=== PATIENT | male | born 1940 | race Caucasian/White ===

== ENCOUNTER 2016-12-17 07:46 | Emergency (ER) | payer MEDICARE, OTHER ==
[2016-12-17] MEDS: KETOROLAC TROMETHAMINE 30 MG/1ML VIAL IVP ONE (08:02)
[2016-12-17] MEDS ORDERED: KETOROLAC TROMETHAMINE 30 MG/1ML VIAL ONE (08:03)
[2016-12-17] MEDS ORDERED: 0.9 % SODIUM CHLORIDE 1,000 ML IV ONE (08:03)
[2016-12-17 08:11] LABS: BASOPHILS % 0.5 (0.0-1.5); EOSINOPHILS % 2.7 % (0.0-6.8); MEAN CORPUSCULAR HEMOGLOBIN 32.4 pg (28.0-34.0); MONOCYTES % 3.5 % (0.0-11.0); NEUTROPHILS # 6.7 # k/uL (1.4-7.7)
[2016-12-17] MEDS: 0.9 % SODIUM CHLORIDE 1,000 ML IV ONE (08:13)
[2016-12-17 08:24] LABS: eGFR (African) > 60; eGFR (Non-African) > 60
--- NOTE | 2016-12-17 09:05 | ED Physician Documentation ---
Male Genitourinary Problems - HISTORIAN Historian: patient, spouse - HPI Chief Complaint: Male Genitourinary Problems Additional Information: rt flank pain diaphoresis card irreg sob pmh gu lith x 3 onset last noct Duration: continues in ED, worse Severity: moderate Further Comments: yes (diaphoresis and card irreg of concern) - Associated Symptoms Problems Urinating: blood in urine (dont know-will check dec ua-not water as usual) Abdominal Pain: mild, moderate - Sexual History Sexual History: non-contributory - ROS CONST: no problems GI/: nausea, abdominal pain. denies: vomiting, problems urinating MS/SKIN/LYMPH: none - PAST HX Past History: kidney stones Cardiac Disease: none Surgeries/Procedures: none Allergies/Adverse Reactions: Allergies Allergy/AdvReac Type Severity Reaction Status Date / Time No Known Allergies Allergy Verified 08/03/13 17:55 Home Medications: Ambulatory Orders Medication Instructions Recorded Cephalexin [Keflex] 500 mg PO QID #30 capsule 08/03/13 - SOCIAL HX Smoking History: non-smoker Alcohol Use: none Drug Use: none - FAMILY HX Family History: none - VITAL SIGNS Vital Signs: Vital Signs Temp Pulse Resp BP Pulse Ox 98.2 F 68 26 H 186/84 96 12/17/16 08:17 12/17/16 08:17 12/17/16 08:17 12/17/16 08:17 12/17/16 08:17 - REVIEWED ASSESSMENTS Nursing Assessment Reviewed: Yes Vitals Reviewed: Yes ED Results Lab/Radiology - Lab Results Lab Results: Lab Results 12/17/16 12/17/16 12/17/16 08:00 08:00 08:00 WBC 10.20 K/ul K/ul (4.00-12.00) RBC 4.97 M/ul M/ul (3.90-5.20) Hgb 16.1 g/dL g/dL (12.0-18.0) Hct 45.2 % % (37.0-53.0) MCV 91.0 fl fl (80.0-100.0) MCH 32.4 pg pg (28.0-34.0) MCHC 35.6 g/dL g/dL (30.0-36.0) RDW 13.4 % % (11.3-14.3) Plt Count 185 K/mm3 K/mm3 (130-400) Neut % (Auto) 66.0 % % (39.0-79.0) Lymph % (Auto) 25.6 % % (16.0-50.0) Ware % (Auto) 3.5 % % (0.0-11.0) Eos % (Auto) 2.7 % % (0.0-6.8) Baso % (Auto) 0.5 (0.0-1.5) Neut # 6.7 # k/uL # k/uL (1.4-7.7) Lymph # 2.6 # k/uL # k/uL (0.6-4.0) Ware # 0.4 # k/uL # k/uL (0.0-0.9) Eos # 0.3 # k/uL # k/uL (0.0-0.6) Baso # 0.1 # k/uL # k/uL (0.0-0.5) Reactive Lymphs % 1.6 % % (0.0-5.0) Reactive Lymphs # 0.2 # k/uL # k/uL (0.0-0.8) Sodium 135 mmol/L L mmol/L (136-145) Potassium 4.2 mmol/L mmol/L (3.5-5.0) Chloride 108 mmol/L mmol/L (98-110) Carbon Dioxide 29 mmol/L mmol/L (20-32) BUN 13 mg/dL mg/dL (10-26) Creatinine 0.8 mg/dL mg/dL (0.4-1.5) Estimated Creat Clear 96 Est GFR ( Amer) > 60 (60 - ) Est GFR (Non-Af Amer) > 60 (60 - ) Glucose 138 mg/dL H mg/dL (70-99) Calcium 9.7 mg/dL mg/dL (8.5-10.5) Total Bilirubin 0.6 mg/dL mg/dL (0.2-1.2) AST 31 U/L U/L (0-41) ALT 41 U/L U/L (0-45) Alkaline Phosphatase 80 U/L U/L (46-116) Troponin I < 0.03 ng/mL L ng/mL (0.03-0.06) Total Protein 7.7 g/dL g/dL (6.0-8.5) Albumin 4.7 g/dL g/dL (3.0-5.5) - Radiology Radiology Impressions: rad called-pt has AC APPT-will send to [facility] - Orders Orders: ED Orders Category Date Time Status Place IV Lock 1T Care 12/17/16 08:04 Active CHEST P.A.&LAT 2 VIEWS [RAD] Stat Exams 12/17/[address] ABD & PELVIS W/O CON Stat Exams 12/17/16 Ordered CBC/PLATELET/DIFF Routine Lab 12/17/16 08:00 Completed CMP Routine Lab 12/17/16 08:00 Completed TROPONIN I (cTnI) Stat Lab 12/17/16 08:00 Completed URINALYSIS Routine Lab 12/17/16 Ordered 0.9 % Sodium Chloride [Normal Saline] 1,000 ml Med 12/17/16 08:03 Discontinued IV .STK-MED 0.9 % Sodium Chloride [Normal Saline] 1,000 ml Med 12/17/16 08:05 Active IV Q1H Ketorolac Tromethamine [Toradol] Med 12/17/16 08:03 Discontinued 30 mg .ROUTE .STK-MED ONE Ketorolac Tromethamine [Toradol] Med 12/17/16 08:02 Discontinued 30 mg IVP NOW ONE EKG WITH COMPARISON Routine Ther 12/17/16 Ordered Male Genitourinary Problems - EXAM General Appearance: moderate distress Abdomen: tenderness, rebound (quest on rlq) EENT: eye inspection normal Neck: nml inspection Respiratory: no resp distress, chest non-tender, breath sounds normal CVS: heart sounds normal, frequent extrasystoles (not prev known). No: reg rate & rhythm Back: CVA tenderness Extremities: normal range of motion, non-tender, normal inspection Neuro/Psych: oriented X3 Skin: warm/dry, normal color, diaphoresis. No: cyanosis, jaundice, mottled Discharge Clincal Impression: Acute appendicitis, hx gu lith Referrals: Primary Doctor,No [Primary Care Provider] - 2 Days Home Medications: Ambulatory Orders Cephalexin [Keflex] 500 mg PO QID #30 capsule 08/03/13 Comments: send DR MASON [facility]-he req zosyn 3.375 IV Condition: Good Disposition: 02 XFER SHT-TRM HOSP Decision to Admit: [id number] Decision Time: 09:05
[2016-12-17] MEDS ORDERED: PIPERACILLIN SODIUM/TAZOBACTAM 3.375 GM VIAL IV ONE (09:07)
[2016-12-17] MEDS ORDERED: 0.9 % SODIUM CHLORIDE 100 ML IV ONE (09:07)
[2016-12-17] MEDS: PIPERACILLIN SODIUM/TAZOBACTAM 3.375 GM in 0.9 % SODIUM CHLORIDE 50 ML IV SCH (09:13)
[2016-12-17] MEDS ORDERED: fentaNYL CITRATE/PF 100 MCG/ 2ML AMP ONE (09:22)
[2016-12-17] MEDS: fentaNYL CITRATE/PF 100 MCG/ 2ML AMP IVP ONE (09:25)
--- NOTE | 2016-12-17 09:28 | Diagnostic Imaging Report ---
[place] CM~ [facility] [address] [facility]. [address] [place] [address]. [id number] ~ ~ ~ ~ Report Submission Date: Dec 17, 2016 8:50:21 AM CDT Patient ~ Study Name: KALYANI VILLALTA ~ Date: Dec 17, 2016 8:17:27 AM CDT ~ Modality Type: CT\SR Gender: M ~ Description: CT ABD & PELVIS W/O CO : 38 ~ Institution: [facility] Physician: [place] CM ~ ~ ~ ~ CT abdomen pelvis without contrast History: Right-sided pain. Technique: Transaxial computed tomographic images of the abdomen and pelvis were obtained without the use of intravenous contrast according to standard protocol. Findings: The lung bases are clear. Heart size is normal. The liver, gallbladder, pancreas, spleen, and adrenal glands are normal. The kidneys are normal without calculus or hydronephrosis. Several appendicoliths are present in the proximal portion of the appendix with distention of the distal portion appendix up to 1.5 cm with adjacent minimal stranding suggesting acute appendicitis. No evidence of perforation or abscess. Trace atherosclerosis is present aorta. No adenopathy is present. The bladder is normal. Multilevel degenerative are present within the lumbar spine. Impression: 1. Distention of the appendix with periappendiceal stranding and proximal appendicoliths most consistent with acute appendicitis . 2. No ~renal calculus, hydronephrosis, or hydroureter. 3. Trace atherosclerosis. Findings discussed with ~ in the ER at~~0849 ~hrs central standard time. ~ Electronically signed on Dec 17, 2016 8:50:21 AM CDT by: Genaro MICHAELS
--- NOTE | 2016-12-17 09:30 | Diagnostic Imaging Report ---
[place] CM~ [facility] [address] [id number] ~ ~ ~ ~ Report Submission Date: Dec 17, 2016 8:50:49 AM CDT Patient ~ Study Name: KALYANI VILLALTA ~ Date: Dec 17, 2016 8:32:14 AM CDT ~ Modality Type: CR Gender: M ~ Description: CHEST : 38 ~ Institution: [facility] Physician: [place] CM ~ ~ ~ ~ Chest, 2 view History: CHEST PAINS Findings: The heart size is normal. The lungs are clear. There is no pleural effusion or pneumothorax identified. The osseous structures are normal. Impression: 1. No acute pulmonary disease. ~ Electronically signed on Dec 17, 2016 8:50:49 AM CDT by: Genaro MICHAELS
[2016-12-17 09:34] VITALS: BP 142/85
== END 2016-12-17 09:27 | disposition short-term general hospital (02) ==
LOC: ED 07:46
DX: K35.80 Unspecified acute appendicitis (principal); R31.9 Hematuria, unspecified; R10.9 Unspecified abdominal pain
CPT/HCPCS: 71020; 74176; 80053; 84484; 85025; 93005; J1885; J2543; J3010; J7030; 96361; 96365; 96375; 99284; S1016

== ENCOUNTER 2016-12-26 10:46 | Outpatient (CLI) | payer MEDICARE, OTHER ==
[2016-12-26 11:32] LABS: eGFR (African) > 60; eGFR (Non-African) > 60
== END 2016-12-26 12:37 ==
LOC: LAB 10:46
PROVIDERS: ATTEND Physician Assistant
DX: E11.9 Type 2 diabetes mellitus without complications (principal)
CPT/HCPCS: 36415; 80053; 83036

== ENCOUNTER 2017-03-22 10:23 | Outpatient (CLI) | payer MEDICARE, OTHER | END 2017-03-22 10:24 | LOC: RT 10:23 | PROVIDERS: ATTEND Family Medicine | DX: Z13.6 Encounter for screening for cardiovascular disorders (principal) ==